=== PATIENT | female | born 1930 | race Caucasian/White ===

== ENCOUNTER 2018-11-16 17:11 | Emergency (ER) | payer MEDICARE, BC ==
[2018-11-16] MEDS ORDERED: ACETAMINOPHEN 325 MG TABLET PO ONE (17:44)
--- NOTE | 2018-11-16 17:46 | ER Document Report ---
ED Medical Screen (RME) - General Chief Complaint: Fall Injury Stated Complaint: FALL INJURY Time Seen by Provider: 11/16/18 17:38 Primary Care Provider: AGNES VAZQUEZ MD [Primary Care Provider] - Follow up as needed Notes: RAPID MEDICAL EVALUATION DISCLOSURE I have seen this patient as part of a Rapid Medical Evaluation and, if applicable, placed any initially appropriate orders. The patient will be seen and fully evaluated, including a full history and physical exam, by a provider (in Main ED or Fast Track) when a room becomes available. 88-year-old female here status post fall just prior to arrival. She was standing up from her wheelchair, after having been in a sitting position for 5 hours, and lost her balance falling forward onto her knees. She did not impact her back however has a history of osteoporosis and is complaining of some pain in her upper back. She has no other pain other than in both knees and her upper back. EXAM Mild TTP of T3-T5 midline spine Mild TTP of right anterior knee No bony upper extremity tenderness TRAVEL OUTSIDE OF THE [place] IN LAST 30 DAYS: No - Related Data Allergies/Adverse Reactions: Sulfa (Sulfonamide Antibiotics) Allergy (Verified 11/16/18 17:13) Past Medical History - Past Medical History Cardiac Medical History: Reports: Hx Hypercholesterolemia, Hx Hypertension Endocrine Medical History: Reports: Hx Diabetes Mellitus Type 2 Renal/ Medical History: Denies: Hx Peritoneal Dialysis Past Surgical History: Reports: Hx Orthopedic Surgery Physical Exam - Vital signs Vitals: Pulse Resp BP Pulse Ox 66 16 149/73 H 99 11/16/18 17:22 11/16/18 17:22 11/16/18 17:22 11/16/18 17:22 Course - Vital Signs Vital signs: Temp Pulse Resp BP Pulse Ox 66 16 149/73 H 99 11/16/18 17:22 11/16/18 17:22 11/16/18 17:22 11/16/18 17:22 Doctor's Discharge - Discharge Referrals: AGNES VAZQUEZ MD [Primary Care Provider] - Follow up as needed
--- NOTE | 2018-11-16 18:31 | ER Document Report ---
ED General - General Chief Complaint: Fall Injury Stated Complaint: FALL INJURY Time Seen by Provider: 11/16/18 17:38 Primary Care Provider: AGNES VAZQUEZ MD [Primary Care Provider] - Follow up as needed Notes: Patient is a 88-year-old female that presents to the emergency department for chief complaint of knee pain after fall. Patient states that she sitting in a wheelchair for an extended period of time and went to stand up she lost her footing and fell forward and landed on both her knees. Most of her pain is now currently in her right knee. She has been unable to bear weight. She had some pain in her lower back and upper back as well. Denies falling or striking her back. Denies any head injury or neck injury from her fall. Denies loss of consciousness. She denies any numbness, tingling or weakness distal to her injuries. Denies any loss of bowel or bladder function. Past Medical History: Osteoporosis, CAD, diabetes mellitus, hypertension Past Surgical History: Orthopedic surgery for wrist injury Social History: Denies tobacco, alcohol or drug use. Family History: Reviewed and noncontributory for presenting illness Allergies: Reviewed, see documented allergy list. REVIEW OF SYSTEMS: Other than noted above, the 12 point review of systems was reviewed with the patient and were negative, all pertinent findings are included in the HPI. PHYSICAL EXAMINATION: Vital signs reviewed, nursing noted reviewed. GENERAL: Elderly female, obese, appears uncomfortable on exam HEAD: Atraumatic, normocephalic. EYES: Eyes appear normal, extraocular movements intact, sclera anicteric, co njunctiva are normal. ENT: nares patent, oropharynx clear without exudates. Moist mucous membranes. NECK: Normal range of motion, supple without lymphadenopathy LUNGS: Breath sounds clear to auscultation bilaterally and equal. No wheezes rales or rhonchi. HEART: Regular rate and rhythm without murmurs ABDOMEN: Soft, obese, nontender, normoactive bowel sounds. No rebound, guarding, or rigidity. No masses appreciated. Back: No midline tenderness to the thoracic or lumbar spine, no paraspinal tenderness. There is some tenderness over the sciatic region on the right. EXTREMITIES: Patient is unable to flex her right hip, and unable to move her right knee, there is a palpable right knee effusion, and point tenderness over the right patella, significant pain with any range of motion of the right knee. The ankles unremarkable on the right there is negative logrolling bilaterally. Patient is able to flex the hip on the left, and bend the left knee without too much difficulty. The ankles unremarkable as well. Upper extremities bilaterally are unremarkable. NEUROLOGICAL: No focal neurological deficits. Moves all extremities spontaneously Motor and sensory grossly intact on exam. PSYCH: Normal mood, normal affect. SKIN: Warm, Dry, normal turgor, no rashes or lesions noted on exposed skin TRAVEL OUTSIDE OF THE [place] IN LAST 30 DAYS: No - Related Data Allergies/Adverse Reactions: Sulfa (Sulfonamide Antibiotics) Allergy (Verified 11/16/18 17:13) Past Medical History - Social History Smoking Status: Former Smoker Family History: Reviewed & Not Pertinent Patient has suicidal ideation: No Patient has homicidal ideation: No - Past Medical History Cardiac Medical History: Reports: Hx Hypercholesterolemia, Hx Hypertension Endocrine Medical History: Reports: Hx Diabetes Mellitus Type 2 Renal/ Medical History: Denies: Hx Peritoneal Dialysis Past Surgical History: Reports: Hx Orthopedic Surgery Physical Exam - Vital signs Vitals: Pulse Resp BP Pulse Ox 66 16 149/73 H 99 11/16/18 17:22 11/16/18 17:22 11/16/18 17:22 11/16/18 17:22 Course - Re-evaluation Re-evalutation: Patient seen and examined vital signs reviewed. Laboratory data and imaging were ordered as appropriate for the patient's presenting symptoms and complaint, with consideration of any critical or life threatening conditions that may be associated with their obtained history and exam as noted above. Patient was treated with Tylenol and oxycodone for her pain Results were reviewed when available and demonstrated unremarkable blood work, EKG demonstrated paced rhythm, without concerning findings, x-rays were obtained of the knees bilaterally, hip and pelvis, and thoracic spine, on the patient's right knee there is a transverse patellar fracture, knee immobilizer was ordered, discussed this case with the orthopedic surgeon on-call Dr. Anderson, he stated if the patient was able to ambulate he can follow-up as an outpatient, we did attempt to get the patient up however she was unable to bear weight, and she does live at home by herself and would not be able to care for herself in a knee immobilizer, I did discuss this case with the hospitalist, however since there is no admission criteria, and advised to call the personal financial planner, patient will be a social hold in the emergency department, until patient can be safely discharged. The patient was re-evaluated and was stable, pain was controlled Evaluation was most consistent with fall, and right patellar fracture *Note is created using voice recognition software and may contain spelling, syntax or grammatical errors. Laboratory 11/16/18 11/16/18 11/16/18 20:35 21:15 21:15 WBC 3.3 L RBC 4.38 Hgb 14.3 Hct 42.4 MCV 97 MCH 32.7 MCHC 33.8 RDW 16.1 H Plt Count 83 L Seg Neutrophils % 64.5 Lymphocytes % 23.0 Monocytes % 8.0 Eosinophils % 3.3 Basophils % 1.2 Absolute Neutrophils 2.1 Absolute Lymphocytes 0.8 Absolute Monocytes 0.3 Absolute Eosinophils 0.1 Absolute Basophils 0.0 Sodium 137.8 Potassium 4.5 Chloride 102 Carbon Dioxide 27 Anion Gap 9 BUN 23 H Creatinine 0.96 Est GFR ( Amer) > 60 Est GFR (Non-Af Amer) 55 L Glucose 114 H Calcium 10.1 Urine Color YELLOW Urine Appearance SLIGHTLY-CLOUDY Urine pH 7.0 Ur Specific [place] 1.008 Urine Protein NEGATIVE Urine Glucose (UA) NEGATIVE Urine Ketones NEGATIVE Urine Blood NEGATIVE Urine Nitrite NEGATIVE Urine Bilirubin NEGATIVE Urine Urobilinogen 4.0 H Ur Leukocyte Esterase TRACE H Urine WBC (Auto) 9 Urine RBC (Auto) 2 Urine Bacteria (Auto) 3+ Squamous Epi Cells Auto 1 Urine Mucus (Auto) RARE Urine Ascorbic Acid NEGATIVE Knee X-Ray 11/16/18 17:44 IMPRESSION: Transverse fracture of the patella with likely hemarthrosis. Background of osteopenia and bilateral tricompartmental degenerative changes. Thoracic Spine X-Ray 11/16/18 17:44 IMPRESSION: SPONDYLOSIS WITHOUT BONE LESION OR FRACTURE. Hip/Pelvis X-Ray 11/16/18 18:46 IMPRESSION: No evidence of acute osseous injury. Background of osteopenia and degenerative changes. - Vital Signs Vital signs: Temp Pulse Resp BP Pulse Ox 97.2 F 65 16 120/60 100 11/16/18 22:53 11/16/18 22:53 11/16/18 22:53 11/16/18 22:53 11/16/18 22:53 - Laboratory Result Diagrams: 11/16/18 21:15 11/16/18 21:15 Laboratory results interpreted by me: 11/16/18 11/16/18 11/16/18 20:35 21:15 21:15 WBC 3.3 L RDW 16.1 H Plt Count 83 L BUN 23 H Est GFR (Non-Af Amer) 55 L Glucose 114 H Urine Urobilinogen 4.0 H Ur Leukocyte Esterase TRACE H - EKG Interpretation by Me Additional EKG results interpreted by me: EKG demonstrates dual paced rhythm with a ventricular rate of 60 bpm, left axis deviation, QTC 492 ms, no ST elevation, no prior for comparison. Discharge - Discharge Clinical Impression: Patellar fracture Qualifiers: Encounter type: initial encounter Fracture type: closed Fracture morphology: tr ansverse Fracture alignment: displaced Laterality: right Qualified Code(s): S82.031A - Displaced transverse fracture of right patella, initial encounter for closed fracture Fall Qualifiers: Encounter type: initial encounter Qualified Code(s): W19.XXXA - Unspecified fall, initial encounter Condition: Stable Referrals: AGNES VAZQUEZ MD [Primary Care Provider] - Follow up as needed
--- NOTE | 2018-11-16 19:01 | RADIOLOGY REPORT (SQ) ---
EXAM DESCRIPTION: KNEE BILATERAL 1-2 VIEWS COMPLETED DATE/TIME: 11/16/2018 6:47 pm REASON FOR STUDY: s/p fall COMPARISON: None. NUMBER OF VIEWS: Four views. TECHNIQUE: Frontal lateral radiographs of the knees were obtained. LIMITATIONS: None. FINDINGS: MINERALIZATION: Osteopenia. RIGHT KNEE BONES: Transverse fracture of the patella with large pleural effusion. MEDIAL COMPARTMENT: Marginal osteophytes, subcortical sclerosis, and loss of joint height. LATERAL COMPARTMENT: Marginal osteophytes, subcortical sclerosis, and loss of joint height. LEFT KNEE BONES: No acute fracture. No worrisome bone lesions. MEDIAL COMPARTMENT: Marginal osteophytes and loss of joint height LATERAL COMPARTMENT: Marginal osteophytes and loss of joint height. IMPRESSION: Transverse fracture of the patella with likely hemarthrosis. Background of osteopenia a nd bilateral tricompartmental degenerative changes. TECHNICAL DOCUMENTATION: JOB ID: [id number] [employer]- All Rights Reserved Reading location - IP/workstation name: [email or web address]
--- NOTE | 2018-11-16 19:02 | RADIOLOGY REPORT (SQ) ---
EXAM DESCRIPTION: T SPINE AP/LAT COMPLETED DATE/TIME: 11/16/2018 6:47 pm REASON FOR STUDY: s/p fall COMPARISON: None. NUMBER OF VIEWS: Two views. TECHNIQUE: AP and lateral radiographic images acquired of the thoracic spine. LIMITATIONS: None. FINDINGS: MINERALIZATION: Normal. ALIGNMENT: Normal. No scoliosis. VERTEBRAE: No fracture or bone lesion. Maintained height, normal segmentation. DISCS: Multilevel disc space narrowing with osteophytes. HARDWARE: Partially imaged transvenous cardiac pacer. MEDIASTINUM AND SOFT TISSUES: Limited evaluation. Grossly normal. VISUALIZED LUNG THRASHER: Clear. OTHER: No other significant finding. IMPRESSION: SPONDYLOSIS WITHOUT BONE LESION OR FRACTURE. TECHNICAL DOCUMENTATION: JOB ID: [id number] [employer]- All Rights Reserved Reading location - IP/workstation name: [email or web address]
[2018-11-16] MEDS ORDERED: OXYCODONE HCL IR 5 MG TABLET PO ONE (19:11)
--- NOTE | 2018-11-16 19:38 | RADIOLOGY REPORT (SQ) ---
EXAM DESCRIPTION: HIP RIGHT AP/LATERAL COMPLETED DATE/TIME: 11/16/2018 7:27 pm REASON FOR STUDY: right hip pain, fall COMPARISON: None. NUMBER OF VIEWS: Two views. TECHNIQUE: AP pelvis and additional frog-leg view of the right hip. LIMITATIONS: None. FINDINGS: MINERALIZATION: Osteopenia. RIGHT HIP: No fracture or dislocation. No worrisome bone lesions. LEFT HIP: No fracture or dislocation. No worrisome bone lesions. PUBIS AND ISCHIUM: No fracture. PELVIS: No fracture. SACRUM: No fracture or dislocation. No worrisome bone lesions. LOWER LUMBAR SPINE: Degenerative changes are present. SOFT TISSUES: No findings. OTHER: No other significant finding. IMPRESSION: No evidence of acute osseous injury. Background of osteopenia and degenerative changes. TECHNICAL DOCUMENTATION: JOB ID: [id number] [employer]- All Rights Reserved Reading location - IP/workstation name: [email or web address]
[2018-11-16 21:20] LABS: APPEARANCE,URINE SLIGHTLY-CLOUDY; BILIRUBIN,URINE NEGATIVE (NEGATIVE); COLOR,URINE YELLOW; GLUCOSE, URINE NEGATIVE (NEGATIVE); KETONES,URINE NEGATIVE (NEGATIVE); LEUKOCYTE ESTERASE,URINE TRACE (NEGATIVE); NITRITE,URINE NEGATIVE (NEGATIVE); PROTEIN,URINE NEGATIVE (NEGATIVE); URINE SPECIFIC GRAVITY 1.008
[2018-11-16 21:30] LABS: ABSOLUTE EOSINOPHILS # (AUTO) 0.1 10^3/uL (0.0-0.6); ABSOLUTE LYMPHOCYTES (AUTO) 0.8 10^3/uL (0.5-4.7); ABSOLUTE MONOCYTES (AUTO) 0.3 10^3/uL (0.1-1.4); ABSOLUTE NEUT (AUTO) 2.1 10^3/uL (1.7-8.2); BASOPHILS % (AUTO) 1.2 % (0-2); EOSINOPHILS % (AUTO) 3.3 % (0-6); HEMATOCRIT 42.4 % (36.0-47.0); HEMOGLOBIN 14.3 g/dL (12.0-15.5); MEAN CORPUSCULAR HEMOGLOBIN 32.7 pg (27.0-33.4); MEAN CORPUSCULAR HGB CONC 33.8 g/dL (32.0-36.0); MEAN CORPUSCULAR VOLUME 97 fl (80-97); RED BLOOD COUNT 4.38 10^6/uL (3.72-5.28); RED CELL DISTRIBUTION WIDTH 16.1 % (11.5-14.0); SEGMENTED NEUTROPHILS % (AUTO) 64.5 % (42-78); TOTAL CELLS COUNTED % (AUTO) 100 %; WHITE BLOOD COUNT 3.3 10^3/uL (4.0-10.5)
[2018-11-16 21:37] LABS: ANION GAP 9 (5-19); BLOOD UREA NITROGEN 23 mg/dL (7-20); CALCIUM 10.1 mg/dL (8.4-10.2); CARBON DIOXIDE 27 mmol/L (22-30); CHLORIDE 102 mmol/L (98-107); GLUCOSE 114 mg/dL (75-110); POTASSIUM 4.5 mmol/L (3.6-5.0); SODIUM 137.8 mmol/L (137-145)
[2018-11-16 21:41] LABS: PLATELET COUNT 83 10^3/uL (150-450)
--- NOTE | 2018-11-16 22:48 | EKG REPORT ---
SEVERITY:- ABNORMAL ECG - ATRIAL-VENTRICULAR DUAL-PACED COMPLEXES QRS COMPLEXES NON-DIAGNOSTIC : Confirmed by: Kd Rojas MD 16-Nov-2018 22:47:02
[2018-11-17] MEDS ORDERED: MORPHINE SULFATE 10 MG/ML INJ IV ONE (10:31)
--- NOTE | 2018-11-17 10:31 | ER Document Report ---
Doctor's Note Notes: 11/17/18 10:26 88-year-old female transferred to me from the off going physician status post fall with a transverse patella fracture. No obvious separation. The immobilizer has been placed. Neurovascularly intact distally. Patient is unable to bear weight secondary to the pain. Patient is a 8 years of age and lives at home. No family members are able to stay with her. We have consulted social work instructor states that the patient would only be visited on a few times per week. Patient is primary Medicare. I have re-paged and discussed the case with again the orthopedic surgeon Dr. Anderson. He does not believe there is any operative intervention needed. Social work is currently talking to the patient and the family to help find an appropriate plan.
[2018-11-17 14:40] VITALS: BP 131/62
== END 2018-11-17 14:38 | disposition home or self-care (01) ==
LOC: ER 17:11
DX: S82.031A Displaced transverse fracture of right patella, initial encounter for closed fracture (principal); M25.561 Pain in right knee; M54.5 Low back pain; W18.39XA Other fall on same level, initial encounter; M85.89 Other specified disorders of bone density and structure, multiple sites; M47.9 Spondylosis, unspecified; I25.10 Atherosclerotic heart disease of native coronary artery without angina pectoris; I10 Essential (primary) hypertension; E11.9 Type 2 diabetes mellitus without complications; E66.9 Obesity, unspecified; Z88.2 Allergy status to sulfonamides; Z87.891 Personal history of nicotine dependence
CPT/HCPCS: 93005; 99284; 96374; 36415; 85025; 80048; 81001; 73502; 72070; 73560; 93010; L1830; A9270 ×2; J2270